=== PATIENT | female | born 1950 | race Caucasian/White ===

== ENCOUNTER 2020-02-28 21:24 | Inpatient (IN) | payer SELFPAY ==
[~2020-02-28] VITALS: Ht 160 cm; Wt 64.5 kg
[~2020-02-28 21:24] MED LIST: CEPHALEXIN500 M1 PO; CIPRO 250MG TA250 MG PO; EC NAPROSYN500 MG PO; GLIPIZIDE10 MG PO; GLUCOPHAGE500 MG/TAB PO; GLUCOTROL 5M5 MG/TAB PO; IBU800 M1 PO; MACROBID 1100 MG/CAP PO; METFORMIN500 MG PO; NAPROXEN 3375 MG/TAB PO; NORCO 325 MG-51 TAB PO; PRAVACHOL20 MG PO; ULTRAM 50MG TAB50 MG PO; ZITHROMAX TRI-500 MG PO
[2020-02-28] MEDS ORDERED: ASPIRIN 81M81 MG/TA2 PO (21:45)
[2020-02-28] MEDS ORDERED: COREG12.5 MG PO (21:46)
[2020-02-28] MEDS ORDERED: CATAPRES-TTS 20.2 M1 TD (21:47)
[2020-02-28] MEDS ORDERED: APRESOLINE 25MG25 MG PO (21:48)
[2020-02-28] MEDS ORDERED: LASIX 80MG TABL80 MG PO (21:48)
[2020-02-28] MEDS ORDERED: IMDUR 60MG60 MG/TAB PO (21:49)
[2020-02-28] MEDS ORDERED: ZAROXOLYN5 MG PO (21:50)
[2020-02-28] MEDS ORDERED: DIOVAN 160MG160 MG PO (21:51)
[2020-02-28] MEDS ORDERED: NOVOLOG MIX 70/33 ML SQ (21:51)
[2020-02-28 22:02] LABS: BASO # 0.1 (0.0-0.2); BASO % 0.5 % (0.0-2.0); EOS # 0.2 (0.0-0.7); GRAN # 7.5 (1.4-6.5); GRAN % 69.4 % (42.2-75.2); HEMOGLOBIN 10.7 g/dl (12.5-16.0); LYMPH # 2.3 (1.2-3.4); LYMPH % 21.5 % (20.0-51.0); MEAN CELL VOLUME 89 fl (80.0-100.0); MEAN CORPUSCULAR HEMOGLOBIN 31 pg (27.0-31.0); MEAN CORPUSCULAR HGB CONC 35 g/dl (33.0-37.0); MEAN PLATELET VOLUME 9.4 fl (7.4-10.4); MONO # 0.7 (0.1-0.6); MONO % 6.3 % (1.7-9.3); PLATELET COUNT 404 K/mm3 (130-400); RED BLOOD COUNT 3.49 M/mm3 (4.10-5.30); REDCELL DISTRIBUTION WIDTH-CV 11.7 % (11.5-14.5)
[2020-02-28 22:35] LABS: COLLECTION METHOD CLEAN CATCH
[2020-02-28 22:40] LABS: MUCOUS Present /lpf; PH 7 (5-8); SQUAMOUS EPITHELIAL 0-2 /hpf; URINE APPEARANCE Clear; URINE BACTERIA None Seen /hpf; URINE BILIRUBIN Negative (NEGATIVE); URINE BLOOD Negative (NEGATIVE); URINE COLOR Yellow; URINE GLUCOSE 3+ (NEGATIVE); URINE KETONE Negative (NEGATIVE); URINE LEUKOCYTE ESTERASE Negative (NEGATIVE); URINE NITRATE Negative (NEGATIVE); URINE PROTEIN(semi-quant) 3+ (NEGATIVE); URINE UROBILINOGEN Negative (NEGATIVE)
[2020-02-28 22:53] LABS: ALBUMIN 3.7 gm/dL (3.5-5.0); BILIRUBIN,TOTAL 0.5 mg/dL (0.0-1.0); CALCIUM 8.8 mg/dL (8.4-10.2); CREATININE, serum 3.8 (0.52-1.25); MAGNESIUM 3.2 mg/dL (1.6-2.3); PHOSPHOROUS 8.3 mg/dL (2.5-4.5); POTASSIUM 3.7 mmol/L (3.4-5.0); TOTAL PROTEIN 7.9 gm/dL (6.4-8.2)
[2020-02-28 22:55] LABS: TROPONIN-I 0.026 ng/mL (0.000-0.035)
[2020-02-29] VITALS (629 sets, daily range): BP systolic 110–217; BP diastolic 43–81; PULSE 53–68; TEMP 97.9–98.6; O2SAT 93–100
--- NOTE | 2020-02-29 02:42 | NUR ---
PATIENT CAN UNDERSTAND ONE QUESTIONS LIKE "PAIN" "HUNGRY" DAUGHTER IS HERE TO TRANSULATE
[2020-02-29 05:30] LABS: BASO # 0.1 (0.0-0.2); BASO % 0.9 % (0.0-2.0); EOS # 0.2 (0.0-0.7); EOS % 1.9 % (0-4.0); GRAN # 4.9 (1.4-6.5); GRAN % 54.4 % (42.2-75.2); LYMPH # 3.1 (1.2-3.4); LYMPH % 33.8 % (20.0-51.0); MEAN CELL VOLUME 91 fl (80.0-100.0); MEAN CORPUSCULAR HGB CONC 33 g/dl (33.0-37.0); MEAN PLATELET VOLUME 9.6 fl (7.4-10.4); MONO # 0.8 (0.1-0.6); MONO % 8.9 % (1.7-9.3); PLATELET COUNT 362 K/mm3 (130-400); RED BLOOD COUNT 3.11 M/mm3 (4.10-5.30); REDCELL DISTRIBUTION WIDTH-CV 11.7 % (11.5-14.5)
[2020-02-29 05:35] LABS: HEMATOCRIT 28.3 % (37.0-47.0); HEMOGLOBIN 9.4 g/dl (12.5-16.0); MEAN CORPUSCULAR HEMOGLOBIN 30 pg (27.0-31.0)
[2020-02-29 05:43] LABS: ALBUMIN 3.1 gm/dL (3.5-5.0); CALCIUM 8.1 mg/dL (8.4-10.2); CREATININE, serum 3.47 (0.52-1.25); PHOSPHOROUS 7.3 mg/dL (2.5-4.5); POTASSIUM 3.3 mmol/L (3.4-5.0)
--- NOTE | 2020-02-29 07:10 | NUR ---
Bedside shift report received from LARA Marrero. Patient is sleeping, but easily aroused. Patient does not speak any romansh, but daughter at bedside and can translate. Patient and daughter have no complaints or concerns at this time. Full assessment completed. Vital signs stable. Bed in lowest position. Side rails up x3. Call light and personal items within reach.
--- NOTE | 2020-02-29 08:00 | NUR ---
Patient's blood pressure elevated and Lilliana with notified. Orders received.
--- NOTE | 2020-02-29 10:57 | NUR ---
Patient has a Catapres patch on from home on right shoulder and it was removed at this time.
--- NOTE | 2020-02-29 13:30 | NUR ---
Report given to LARA Ryder on medical floor and patient transferred to medical bed 351 with no complications. Maggie, patient's daughter, at bedside during transfer and helped to tranfer patient's personal belongings. Once in 351, call light placed within reach and care handed over to LARA Ryder at this time.
--- NOTE | 2020-02-29 15:20 | NUR ---
KRISTINE met with the patient and the patient's daughter, Stephanie to complete initial intake. The patient is Vietnamese speaking. The patient was living in [place] with Stephanie but recently has moved to [place] to live with her other daughter, Jacey. The patient has a walker and prior to hospitalization she was independent with ADLs. The patient sees a provider at [facility] but follow-ups to be set up at [facility]. The patient receives medications at [facility]. The patient does not have advanced directives in the EMR. However, Stephanie states they are completed and designate her. She is to bring a copy. The patient only has two daughters, Stephanie and Jacey. The patient is self-pay and Stephanie was inquiring about insurance for the patient. The patient has an individual taxpayer identification number (ITIN). Per AUSTIN Mendoza financial counselor, the patient can apply for private insurance. Due to the patient having at ITIN the patient would have to contact Catherine with the [facility] to inquire about applying for Medicaid and or Medicare. Stephanie was agreeable to contacting Catherine. KRISTINE will continue to follow to ensure a safe discharge.
--- NOTE | 2020-02-29 16:22 | NUR ---
Stephanie contacted KRISTINE. She states that per Catherine at [facility], the patient will not qualify for Medicare, Medicaid or private insurance. KRISTINE provided the FAA in Cameroonian. Will continue to monitor.
--- NOTE | 2020-02-29 19:13 | NUR ---
report given to LARA Cloud. Pt was in room eating dinner at bedside report. No concerns at this time. Currently happy and content. Call light within reach, no further concerns.
[2020-03-01] VITALS (8 sets, daily range): BP systolic 151–207; BP diastolic 42–70; PULSE 56–72; TEMP 98.4–98.7
--- NOTE | 2020-03-01 04:52 | NUR ---
UPON CHECKING ON PATIENT SHE IS SITTING UP AT THE SIDE OF THE BED WITH NAUSEA AND SPITTING UP PHLEM. PRN ZOFRAN WAS GIVEN. BLOOD PRESSURE WAS RECHECKED AND IT WAS 152/70. NO PRN ORDERS GIVEN AT THIS TIME OTHER THAN ZOFRAN
--- NOTE | 2020-03-01 05:27 | NUR ---
PATIENT HAS HAD A COUPLE OF EPIDSODES THROUGH THE NIGHT. PATIENT HAD A BLOOD PRESSURE OF GREATER THAN 160 SBP BUT DBP WAS LOW AND THIS NURSE DID NOT FEEL COMFORTABLE GIVING PRN MEDICATIONS. PATIENT WAS GIVEN A PRN DOSE OF ZOFRAN FOR SOME NAUSEA AND VOMITING. FRESH WATER AND SPRITE WAS GIVEN TO THE PATIENT DURING HER NAUSEA TIME. RECHECKED BLOOD PRESSURE AND WAS LOWER THAN PREVIOUS DOCUMENTED BY AIDE AND NO PRN MEDICATIONS WERE GIVEN. ZOFRAN HELPED THE PATIENT AND SHE WAS ABLE TO GET BACK INTO BED AT THAT TIME. WILL REPORT OFF TO DAY SHIFT WHEN THEY ARRIVE
[2020-03-01 09:37] LABS: BASO % 0.5 % (0.0-2.0); CALCIUM 8.4 mg/dL (8.4-10.2); CREATININE, serum 3.74 (0.52-1.25); EOS # 0.2 (0.0-0.7); EOS % 2.2 % (0-4.0); GRAN # 5.1 (1.4-6.5); GRAN % 58.7 % (42.2-75.2); LYMPH # 2.8 (1.2-3.4); LYMPH % 31.7 % (20.0-51.0); MEAN CELL VOLUME 92 fl (80.0-100.0); MEAN CORPUSCULAR HGB CONC 33 g/dl (33.0-37.0); MONO # 0.6 (0.1-0.6); MONO % 6.7 % (1.7-9.3); PHOSPHOROUS 6.3 mg/dL (2.5-4.5); PLATELET COUNT 345 K/mm3 (130-400); POTASSIUM 3.4 mmol/L (3.4-5.0); RED BLOOD COUNT 3.15 M/mm3 (4.10-5.30); REDCELL DISTRIBUTION WIDTH-CV 11.9 % (11.5-14.5)
[2020-03-01 09:39] LABS: HEMATOCRIT 28.9 % (37.0-47.0); HEMOGLOBIN 9.6 g/dl (12.5-16.0); MEAN CORPUSCULAR HEMOGLOBIN 30 pg (27.0-31.0)
--- NOTE | 2020-03-01 10:34 | NUR ---
The patient's daughter, Stephanie contacted KRISTINE. She stated that [facility] would possibly be able to assist with dialysis payments. KRISTINE contacted ADA López at [facility] [phone]. She states they MAY be able to assist with financial up to $500 but she will need to present the case to their committee. Mariana states they need some medical records and further information regarding the patient's condition. KRISTINE will discuss this with the patient and Dr. Posada before sending information. KRISTINE informed KRISTINE Thorpe and Dr. Albino Waddell nurse. Mariana's fax number is [phone]. Will continue to follow.
--- NOTE | 2020-03-01 12:27 | NUR ---
First visit from the greens picker. No need right now.
--- NOTE | 2020-03-01 15:50 | NUR ---
KRISTINE met with the patient to discuss sending HNP and a progress note to Mariana at [facility]. The patient was agreeable to sending the information. Dr. Posada also contacted Mariana to discuss the case. KRISTINE will continue to follow.
--- NOTE | 2020-03-01 18:07 | NUR ---
patient reports dizziness and headache with positon change especially from laying to standing, I checked a set of Orthostatic blood pressures and there was a significant drop from [id number], also nystagmus noted upon assessment, will notify physician
--- NOTE | 2020-03-01 19:15 | NUR ---
Received report from Manoj. Seen patient asleep on bed. Call light within reach.
--- NOTE | 2020-03-01 20:30 | NUR ---
Patient's blood pressure is 170/54. Hydralazine PRN not given since patient is due for her Vasotec. Will recheck her blood pressure again after an hour after giving the Vasotec.
--- NOTE | 2020-03-01 22:30 | NUR ---
Patient's blood pressure is 170/51. She's nauseous and vomiting phlegm/saliva. Hydralazine PRN given since blood pressure didn't go down after giving her due Vasotec. Zofran PRN given as well for her nausea and vomiting. Assisted patient to the bathroom to urinate.
[2020-03-01 22:57] LABS: COLLECTION METHOD CLEAN CATCH
[2020-03-01 23:30] LABS: PH 7 (5-8); URINE APPEARANCE Clear; URINE BACTERIA Rare /hpf; URINE BILIRUBIN Negative (NEGATIVE); URINE BLOOD Negative (NEGATIVE); URINE COLOR Yellow; URINE GLUCOSE 2+ (NEGATIVE); URINE KETONE Negative (NEGATIVE); URINE LEUKOCYTE ESTERASE Negative (NEGATIVE); URINE NITRATE Negative (NEGATIVE); URINE PROTEIN(semi-quant) 3+ (NEGATIVE); URINE RBC 0-2 /hpf; URINE UROBILINOGEN Negative (NEGATIVE); URINE WBC 0-2 /hpf
[2020-03-02] VITALS (7 sets, daily range): BP systolic 139–176; BP diastolic 46–61; PULSE 64–76; TEMP 97.9–98.9
--- NOTE | 2020-03-02 06:41 | NUR ---
Patient still has dizziness. Blood pressure went down already, latest is 145/61. Will endorse to day shift nurse.
[2020-03-02 07:16] LABS: BASO # 0.1 (0.0-0.2); BASO % 0.7 % (0.0-2.0); EOS # 0.3 (0.0-0.7); GRAN # 4.9 (1.4-6.5); GRAN % 58.5 % (42.2-75.2); LYMPH # 2.5 (1.2-3.4); LYMPH % 29.7 % (20.0-51.0); MEAN CELL VOLUME 92 fl (80.0-100.0); MEAN CORPUSCULAR HGB CONC 33 g/dl (33.0-37.0); MEAN PLATELET VOLUME 9.3 fl (7.4-10.4); MONO # 0.7 (0.1-0.6); MONO % 7.9 % (1.7-9.3); PLATELET COUNT 349 K/mm3 (130-400); RED BLOOD COUNT 3.25 M/mm3 (4.10-5.30); REDCELL DISTRIBUTION WIDTH-CV 11.8 % (11.5-14.5)
[2020-03-02 07:17] LABS: HEMOGLOBIN 9.9 g/dl (12.5-16.0); MEAN CORPUSCULAR HEMOGLOBIN 30 pg (27.0-31.0)
[2020-03-02 07:36] LABS: ALBUMIN 3.1 gm/dL (3.5-5.0); CALCIUM 8.5 mg/dL (8.4-10.2); CREATININE, serum 3.84 (0.52-1.25); PHOSPHOROUS 6.3 mg/dL (2.5-4.5); POTASSIUM 3.4 mmol/L (3.4-5.0)
--- NOTE | 2020-03-02 10:16 | NUR ---
PATIENT IS ALERT AND ORIENTED. COMPLAIN OF STOMACH PAIN AT 5/10. NAUSEOUS. GAVE ZOFRAN. PATIENT HAD A BED BATH THIS MORNING. RESTING IN BED AT THE MOMENT.
--- NOTE | 2020-03-02 19:13 | NUR ---
Patient deny any nausea, pain at 3/10. tolerate diet.
--- NOTE | 2020-03-02 20:45 | NUR ---
Patient assessed at this time. Alert and oriented. Denies having pain and discomfort. Peripheral INT to right AC. Flushed. Site is without redness, warmth, swelling, and pain. Denies SOB and dyspnea. Respirations are even and unlabored. LS CTA. HRR. Capillary refill less than 3 seconds. Non-tenting skin turgor. BSAx4. Abdomen soft and non-tender. No edema. Voices no questions, needs, or concerns at this time. Resting in bed watching TV. Call light is within reach.
[2020-03-03] VITALS (8 sets, daily range): BP systolic 146–192; BP diastolic 36–96; PULSE 56–90; TEMP 97.6–98.6
--- NOTE | 2020-03-03 04:59 | NUR ---
Patient has been resting in bed with call light within reach. Denies having pain and discomfort when asked.
[2020-03-03 07:19] LABS: BASO # 0.1 (0.0-0.2); BASO % 0.5 % (0.0-2.0); EOS # 0.4 (0.0-0.7); EOS % 3.7 % (0-4.0); GRAN % 49.3 % (42.2-75.2); LYMPH % 39.2 % (20.0-51.0); MEAN CELL VOLUME 93 fl (80.0-100.0); MEAN CORPUSCULAR HGB CONC 33 g/dl (33.0-37.0); MEAN PLATELET VOLUME 9.5 fl (7.4-10.4); MONO # 0.7 (0.1-0.6); MONO % 6.9 % (1.7-9.3); PLATELET COUNT 333 K/mm3 (130-400); RED BLOOD COUNT 3.19 M/mm3 (4.10-5.30); REDCELL DISTRIBUTION WIDTH-CV 11.7 % (11.5-14.5)
[2020-03-03 07:28] LABS: HEMATOCRIT 29.5 % (37.0-47.0); HEMOGLOBIN 9.8 g/dl (12.5-16.0); MEAN CORPUSCULAR HEMOGLOBIN 31 pg (27.0-31.0)
[2020-03-03 07:33] LABS: CALCIUM 8.6 mg/dL (8.4-10.2); CREATININE, serum 3.76 (0.52-1.25); PHOSPHOROUS 5.6 mg/dL (2.5-4.5); POTASSIUM 3.3 mmol/L (3.4-5.0)
--- NOTE | 2020-03-03 08:47 | NUR ---
PATIENT ASSESSMENT COMPLETED. PATIENT IS LAO SPEAKING FEMALE APPEARS TO UNDERSTAND SOME OF WHAT I AM ASKING HER. DENIES PAIN OR OTHER NEEDS AT THIS TIME.
--- NOTE | 2020-03-03 12:42 | NUR ---
PATIENT IS GIVEN PRN APRESOLINE AT THIS TIME FOR BP ELEVATION
--- NOTE | 2020-03-03 13:12 | NUR ---
patient laying in bed talking on the telephone. Daughter at bedside.
--- NOTE | 2020-03-03 19:08 | NUR ---
patient up at side of bed eatting supper. She denies needs
--- NOTE | 2020-03-03 20:35 | NUR ---
Patient assessed at this time. Alert and oriented. Patient's primary language is Icelandic, but is able to answer questions. Denies having pain and discomfort. Peripheral INT to right AC. Site is without redness, warmth, swelling, and pain. Denies having SOB and dyspnea. LS CTA. Respirations even and unlabored. HRR. Capillary refill less than 3 seconds. Non-tenting skin turgor. BSAx4. Abdomen soft and non-tender. No edema. Voices no questions, needs, or concerns at this time. Resting in bed with call light within reach.
[2020-03-04 03:55] VITALS: BP 156/45; PULSE 61; TEMP 98.5
--- NOTE | 2020-03-04 05:25 | NUR ---
Patient has been resting in bed with call light within reach. Has denied having pain and discomfort. Denies having nausea.
[2020-03-04 07:35] LABS: BASO # 0.1 (0.0-0.2); BASO % 0.7 % (0.0-2.0); EOS # 0.4 (0.0-0.7); EOS % 3.5 % (0-4.0); GRAN # 5.6 (1.4-6.5); GRAN % 56.3 % (42.2-75.2); LYMPH # 3.2 (1.2-3.4); LYMPH % 32.2 % (20.0-51.0); MEAN CELL VOLUME 91 fl (80.0-100.0); MEAN CORPUSCULAR HGB CONC 34 g/dl (33.0-37.0); MEAN PLATELET VOLUME 9.9 fl (7.4-10.4); MONO # 0.7 (0.1-0.6); PLATELET COUNT 337 K/mm3 (130-400); RED BLOOD COUNT 3.09 M/mm3 (4.10-5.30); REDCELL DISTRIBUTION WIDTH-CV 11.7 % (11.5-14.5)
[2020-03-04 07:40] VITALS: BP 140/37; PULSE 60; TEMP 98.9
[2020-03-04 07:43] LABS: CALCIUM 8.5 mg/dL (8.4-10.2); CREATININE, serum 3.34 (0.52-1.25); POTASSIUM 3.8 mmol/L (3.4-5.0)
[2020-03-04 07:56] LABS: HEMATOCRIT 28.2 % (37.0-47.0); HEMOGLOBIN 9.5 g/dl (12.5-16.0); MEAN CORPUSCULAR HEMOGLOBIN 31 pg (27.0-31.0)
--- NOTE | 2020-03-04 10:06 | NUR ---
Assessment completed, alert/oriented, vital sign stable/ blood pressures improved, reports mild headache and mild Nausea, she has been able to hand PO intake better and is eating more, I gave zofran with her breakfast, she denies any more dizziness and is ambulating well with PT at this time, heart RRR, lungs CTA, creat 3.4 this morning and is making good urine ouput, patient denies other need at this time
[2020-03-04 11:24] VITALS: BP 167/47; PULSE 57; TEMP 98.4
[2020-03-04] MEDS ORDERED: PROTONIX 40MG T40 MG PO (13:28)
--- NOTE | 2020-03-04 16:37 | NUR ---
Discharge instructions reviwed with patient and her daughter, instructed to follow up with PCP at [facility] as scheduled, instructed to have labs drawn and follow up with in 2 weeks time, discussed medications with them, IV removed, I escorted patien out to the vehicle via wheelchair
== END 2020-03-04 16:54 | disposition home or self-care (01) | DRG 684 ==
LOC: COL.ER 21:24 → IMCU 23:08 → MEDICAL 02-29 13:46
PROVIDERS: Emergency Medicine; ADMIT Internal Medicine Nephrology
DX: N17.9 Acute kidney failure, unspecified (principal); I12.9 Hypertensive chronic kidney disease with stage 1 through stage 4 chronic kidney disease, or unspecified chronic kidney disease; N18.4 Chronic kidney disease, stage 4 (severe); E11.22 Type 2 diabetes mellitus with diabetic chronic kidney disease; R10.13 Epigastric pain
CPT/HCPCS: J0360; J1815; J1940; J2405; J7030